=== PATIENT | female | born 1980 ===

== ENCOUNTER → 2020-10-03 | Day surgery (SDC) | payer BC ==
[~2020-10-03] MED LIST: Dexamethasone 4 MG/ML 5 ML MDV ONE; HYDROmorphone 0.5 MG/0.5 ML Syringe IVPUSH PRN; HYDROmorphone 0.5 MG/0.5 ML Syringe ONE; Ketorolac 30 MG/ML SDV ONE; Lactated Ringers 1,000 ML IV SCH; Lactated Ringers 1,000 ML ONE; Lidocaine 1% 8 ML ONE; Lidocaine 1%/Sod Bicarbonate in NS 8.4% 1 ML Syringe IDERM PRN; Metoclopramide 10 MG/2 ML SDV ONE; Midazolam 1 MG/ML 2 ML SDV ONE; Ondansetron 4 MG/2 ML SDV ONE; Propofol 200 MG/20 ML SDV ONE; Sodium Chloride 0.9% 10 ML Syringe FLUSH PRN; Succinylcholine/Sod PF 100 MG/5 ML SYRINGE IV ONE; ceFAZolin 1 GM Vial ONE; fentaNYL 100 MCG/2 ML SDV IVPUSH PRN; fentaNYL 250 MCG/5 ML SDV ONE; oxyCODONE 5 MG Tab PO SCH
--- NOTE | 2020-10-03 11:06 | PCM.PREANE ---
Preanesthetic Assessment - Procedure Proposed Procedure: Laparoscopic Cholecystectomy - Anesthesia/Transfusion/Family Hx Anesthesia History: Prior Anesthesia Without Reaction Transfusion History: No Prior Transfusion(s) - Review of Systems General: No Symptoms Pulmonary: No Symptoms Cardiovascular: No Symptoms Gastrointestinal: No Symptoms Neurological: No Symptoms Other: Reports: None - Physical Assessment NPO Status Date: 10/02/20 NPO Status Time: 19:00 Vital Signs: Last Vital Signs Temp 98.0 F 10/03/20 10:40 Pulse 72 10/03/20 10:40 Resp 16 10/03/20 10:40 BP 131/74 10/03/20 10:40 Pulse Ox 96 10/03/20 10:40 Height: 1.75 m Weight: 105.233 kg ASA Class: 2 Mental Status: Alert & Oriented x3 Airway Class: Mallampati = 2 Dentition: Reports: Normal Dentition Thyro-Mental Finger Breadths: 3 Mouth Opening Finger Breadths: 3 ROM/Head Extension: Full Lungs: Clear to Auscultation, Normal Respiratory Effort Cardiovascular: Regular Rate, Regular Rhythm - Lab Values: Laboratory Last Values Urine HCG, Qual Negative (NEGATIVE) 10/03/20 10:17 - Allergies Allergies/Adverse Reactions: Allergies Allergy/AdvReac Type Severity Reaction Status Date / Time No Known Allergies Allergy Verified 10/02/20 12:47 - Acknowledgements Anesthesia Type Planned: General Anesthesia Pt an Appropriate Candidate for the Planned Anesthesia: Yes Alternatives and Risks of Anesthesia Discussed w Pt/Guardian: Yes Pt/Guardian Understands and Agrees with Anesthesia Plan: Yes PreAnesthesia Questionnaire - Past Health History Medical/Surgical History: Denies Medical/Surgical History HEENT History: Reports: Allergic Rhinitis Cardiovascular History: Gastrointestinal History: Reports: Other (See Below) Other Gastrointestinal History: Diarrhea (3 episodes per day), elevated liver enzymes [employer] History: Reports: Other (See Below) Other OB/BYN History: section x2 Endocrine/Metabolic History: Reports: Hypothyroidism, Other (See Below) Other Endocrine/Metabolic History: elevated glucose, fatigue, Casi's disease Hematologic History: Reports: Anemia Other Hematologic History: anemia with - Past Surgical History HEENT Surgical History: Reports: Oral Surgery, Tonsillectomy - SUBSTANCE USE Tobacco Use Status *Q: Never Tobacco User Recreational Drug Use History: No - HOME MEDS Home Medications: Home Meds Ergocalciferol (Vitamin D2) [Vitamin D2] 1 cap PO DAILY 10/02/20 [History] Levothyroxine [Synthroid] 88 mcg PO DAILY 10/02/20 [History] Multivitamin [Multi-Day Vitamins] 1 tab PO DAILY 10/02/20 [History] norgestrel-ethinyl estradioL [Elinest-28 Tablet] 1 tab PO DAILY 10/02/20 [ History] - CURRENT (IN HOUSE) MEDS Current Meds: Current Medications Lactated Ringer's (Ringers, Lactated) 1,000 mls @ 125 mls/hr IV ASDIRECTED ZOHREH Stop: 10/03/20 23:00 Lidocaine/Sodium Bicarbonate (Lidocaine 1%/Sod Bicarbonate In Ns 8.4% 1 Ml Syringe) 0.25 ml IDERM ONETIME PRN PRN Reason: Prior to IV Start Stop: 10/03/20 18:00 Last Admin: 10/03/20 10:35 Dose: 0.25 ml Documented by: Sodium Chloride (Sodium Chloride 0.9% 10 Ml Syringe) 10 ml FLUSH ASDIRECTED PRN PRN Reason: Keep Vein Open Stop: 10/03/20 18:00 Discontinued Medications Bupivacaine HCl/Epinephrine Bitart (Bupivacaine 0.5%/Epinephrine 1:200,000 50 Ml Mdv) Confirm Administered Dose 50 ml .ROUTE .STK-MED ONE Stop: 10/03/20 10:22 Sodium Chloride (Sodium Chloride 0.9% 10 Ml Syringe) 10 ml FLUSH ASDIRECTED PRN PRN Reason: Keep Vein Open Stop: 10/02/20 23:00
[2020-10-03] MEDS: Bupivacaine 0.5%/EPINEPHrine 1:200,000 50 ML MDV ONE ×2 (11:32→11:47)
--- NOTE | 2020-10-03 12:43 | PCM.POSTAN ---
POST ANESTHESIA ASSESSMENT - MENTAL STATUS Mental Status: Somnolent - VITAL SIGNS Vital Signs: Last Vital Signs Temp 98.4 F 10/03/20 12:40 Pulse 54 L 10/03/20 12:40 Resp 19 10/03/20 12:40 BP 116/68 10/03/20 12:40 Pulse Ox 97 10/03/20 12:40 - RESPIRATORY Respiratory Status: Respiratory Rate WNL, Airway Patent, O2 Saturation Stable, Supplemental Oxygen - CARDIOVASCULAR CV Status: Pulse Rate WNL, Blood Pressure Stable - GASTROINTESTINAL GI Status: No Symptoms - PAIN Pain Score: 3 - POST OP HYDRATION Hydration Status: Adequate & Stable
--- NOTE | 2020-10-03 13:19 | PCM48HPAN ---
Post Anesthesia Note - EVALUATION WITHIN 48HRS OF ANESTHETIC Vital Signs in Normal Range: Yes Patient Participated in Evaluation: Yes Respiratory Function Stable: Yes Airway Patent: Yes Cardiovascular Function Stable: Yes Hydration Status Stable: Yes Pain Control Satisfactory: Yes Nausea and Vomiting Control Satisfactory: Yes Mental Status Recovered: Yes (slightly sleepy, easily arousable and a/o x 3) Vital Signs: Last Vital Signs Temp 98.5 F 10/03/20 12:55 Pulse 65 10/03/20 13:10 Resp 18 10/03/20 13:10 BP 97/57 L 10/03/20 13:10 Pulse Ox 92 L 10/03/20 13:10 - COMMENTS/OBSERVATIONS Free Text/Narrative:: Patient is transferred to stage 2 recovery, plan is to be discharged home.
--- NOTE | 2020-10-03 14:40 | PCM.PRNOTE ---
- Free Text/Narrative Note: Date: 10/03/2020 Operation: laparoscopic cholecystectomy Indication: symptomatic cholelithiasis Surgeon: Nathanael Stahl MD Findings: mild chronic inflammatory changes of gallbladder. Critical view of safety obtained. Detailed Report: The patient was taken to the OR and place supine on the table. Time out was per formed and general endotracheal anesthesia initiated. The abdomen was prepped and draped in usual sterile fashion. A Veress needle was placed at the left upper quadrant and pneumoperitoneum established. Once pressure reached 15 mm Hg, Air was aspirated inferior to the umbilicus with a needle and syringe. This site was anesthetized with 0.5% marcaine with epinephrine and a 5 mm bladed trocar was inserted into the abdomen. A 5 mm 30 degree laparoscope was inserted and abdominal contents inspected. There was no injury from Veress placement. As the needle was removed, there was some bleeding from the insertion site, which was later controlled with directed monopolar energy after placement of the remaining ports. Additional 5 mm ports were placed at the right lateral abdomen and medial right abdomen under laparoscopic visualization. The gallbladder fundus was grasped and retracted cephalad. A 12 mm bladed trocar was inserted at the subxiphoid area. The infundibulum was grasped and retracted laterally. A combination of hook monopolar, [place] dissector and suction logging engineer were used to dissect out the cystic duct and artery. A critical view of safety was obtained with the two structures seen going to the gallbladder. Hemolock clips were placed on the structures prior to transection with laparoscopic alesia; two clips were left on the cystic duct stump. The gallbladder was free from the liver using the electrode. There was no bile spilled. The specimen was placed in an Endocatch bag and removed through the larger port site. This site was closed at the level of fascia with 0 vicryl using the laparoscopic suture passer. Lateral ports were removed and hemostasis appeared satisfactory. The scope was withdrawn and pneumoperitoneum released prior to removal of the umbilical port. Incisions were closed at the level of skin with subcuticular vicryl suture and dressed with dermabond. In addition to local anesthetic injected at incision sites, a bilateral TAP black was performed under laparoscopic visualization, with a total of 60 cc 0.5% marcaine with epinephrine used throughout the case. The patient tolerated the operation well.
[2020-10-03 14:48] VITALS: BP 125/61; PULSE 65
== END | disposition home or self-care (01) ==
LOC: JD.SDS 10:21
PROVIDERS: ATTEND Surgery
DX: K80.10 Calculus of gallbladder with chronic cholecystitis without obstruction (principal); E03.9 Hypothyroidism, unspecified; Z79.890 Hormone replacement therapy; Z79.899 Other long term (current) drug therapy
CPT/HCPCS: 47562; 81025; A9270; J0330; J0690; J1100; J1170; J1885; J2250; J2405; J2704; J2710; J2765; J3010; J3490; J7120; 00790